=== PATIENT | female | born 1955 | race Caucasian/White ===

== ENCOUNTER 2021-03-29 15:05 | Emergency (ER) | payer OTHER ==
[~2021-03-29] VITALS: Ht 162.6 cm; Wt 65.5 kg
[~2021-03-29 15:05] MED LIST: ALPR0.5T7 PO; BISA10SU65 PR; CEPH-376 PO; FLUO20CA19 PO; GABA300C PO; HYDR1TAB16 PO; METH-639 PO; METH500T97 PO; MORP-52 PO; ONDA4TAB10 PO; OXYC-501 PO; OXYC5TAB98 PO; SENN-177 PO
[2021-03-29 15:08] VITALS: BP 139/91
--- NOTE | 2021-03-29 15:12 | NUR ---
EKG IN TRIAGE
[2021-03-29 15:50] LABS: BASOPHILS % (AUTO) 2 % (0-1); EOSINOPHILS % (AUTO) 4 % (1-7); LYMPHOCYTES % (AUTO) 36 % (22-44); MEAN CORPUSCULAR HEMOGLOBIN 30.9 pg (27.0-34.8); MEAN CORPUSCULAR HGB CONC 34.3 g/dL (32.4-35.8); MEAN PLATELET VOLUME 7.3 fL (7.4-10.4); MONOCYTES % (AUTO) 10 % (2-9); NEUTROPHILS % (AUTO) 48 % (42-75); PLATELET COUNT 243 x10^3/uL (130-400); RED BLOOD COUNT 4.46 x10^6/uL (3.82-5.3); RED CELL DISTRIBUTION WIDTH 12.6 % (9.6-15.2)
[2021-03-29 16:00] LABS: ALBUMIN 3.6 g/dL (3.4-5.0); ANION GAP 6 mmol/L (5-15); CHLORIDE 101 mmol/L (98-107)
[2021-03-29 16:07] LABS: ALANINE AMINOTRANSFERASE 38 U/L (12-78); ALKALINE PHOSPHATASE 66 U/L (45-117); BILIRUBIN,TOTAL 0.4 mg/dL (0.2-1.0); CREATININE 0.69 mg/dL (0.55-1.02); TOTAL PROTEIN 7.6 g/dL (6.4-8.2); TROPONIN I < 0.015 ng/mL (0.000-0.045)
--- NOTE | 2021-03-29 18:31 | NUR ---
not in lobby
--- NOTE | 2021-03-29 19:10 | NUR ---
not in lobby
--- NOTE | 2021-03-29 19:22 | NUR ---
not in lobby
== END 2021-03-29 19:29 | disposition left against medical advice (07) ==
LOC: ED 15:30
DX: R07.89 Other chest pain (principal)
CPT/HCPCS: 36415; 71045; 80053; 84484; 85025; 93005; 99285